=== PATIENT | male | born 1995 | race Hispanic/Latino ===

== ENCOUNTER 2020-07-15 10:46 | Emergency (ER) | payer OTHER | END 2020-07-15 11:55 | LOC: ERS 10:46 | DX: L42 Pityriasis rosea (principal); F17.210 Nicotine dependence, cigarettes, uncomplicated | CPT/HCPCS: 99283 ==

== ENCOUNTER 2020-07-19 10:45 | Emergency (ER) | payer OTHER ==
[2020-07-19] MEDS ORDERED: predniSONE 20 MG TAB ONE (11:50)
[2020-07-19] MEDS ORDERED: Famotidine 20 MG TAB ONE (11:50)
[2020-07-19] MEDS ORDERED: diphenhydrAMINE 50 MG CAP ONE ×2 (11:50→15:22)
[2020-07-19 12:42] LABS: Bacteria/HPF None Seen HPF (None Seen); Bilirubin Negative (Negative); Blood, Urine Negative (Negative); Clarity Clear (Clear); Glucose, Urine (Dipstick) Normal (Negative); Ketone, Urine Negative (Negative); Leukocyte Negative Leu/uL (Negative); Nitrite Negative (Negative); Protein, Urine (Dipstick) 30 mg/dL (Neg-Trace); RBC/HPF 0-3 HPF (0-3); Squamous Epithelial 0-3 HPF (0-3); Urobilinogen Normal mg/dL (Less than 2); WBC/HPF 0-3 HPF (0-3); pH, Urine 6.5 (5.0-9.0)
[2020-07-19 12:43] LABS: Syphilis Antibody Index 22.64 S/CO (<1.00 Non-Reactive)
[2020-07-19] MEDS ORDERED: diphenhydrAMINE 50 MG/ML VIAL ONE (15:20)
[2020-07-19 16:28] LABS: Syphilis Antibody REACTIVE (Nonreactive)
[2020-07-19] MEDS ORDERED: Bicillin LA 2.4 MILL.UNITS/4 ML SYRINGE ONE (17:10)
[2020-07-20 18:53] LABS: Chlam.trachomatis by PCR,Urine Not Detected (NotDetected)
== END 2020-07-19 17:37 ==
LOC: EEVIPCON 10:45 → ERS 10:45
DX: A51.39 Other secondary syphilis of skin (principal); F17.210 Nicotine dependence, cigarettes, uncomplicated
CPT/HCPCS: 36415; 81003; 81015; 86593; 86780; 87491; 87591; 96372; 99283; J0561; J1200; J7512

== ENCOUNTER 2020-08-10 17:22 | Emergency (ER) | payer OTHER | END 2020-08-10 18:21 | disposition left against medical advice (07) | LOC: ERS 17:22 | DX: Z53.21 Procedure and treatment not carried out due to patient leaving prior to being seen by health care provider (principal) ==